=== PATIENT | male | born 1970 | race Caucasian/White ===

== ENCOUNTER 2020-10-14 11:53 | Outpatient (REF) | payer SELFPAY ==
[2020-10-14 12:31] LABS: Cholesterol 168 mg/dL
== END 2020-10-14 11:54 | disposition home or self-care (01) ==
LOC: HO.LNC 11:53
PROVIDERS: Visit Provider Pathology Anatomic Pathology & Clinical Pathology
DX: Z13.89 Encounter for screening for other disorder (principal)
CPT/HCPCS: 36415; 82465

== ENCOUNTER 2022-03-09 06:39 | Outpatient (REF) | payer MEDICARE, MEDICAID, SELFPAY ==
[2022-03-09 06:57] LABS: Hematocrit 42.6 % (42.0-52.0); Hemoglobin 13.9 g/dl (14.0-18.0); Mean Corpuscular HGB Conc 32.6 g/dl (31.0-36.0); Mean Corpuscular Volume 85.7 fL (80.0-98.0); Platelet Count 350 X10*3/uL (160-400); Red Blood Count 4.97 X10*6/uL (4.60-5.80); Red Cell Distribution Width 13.4 % (11.0-16.0); White Blood Count 8.7 X10*3/uL (4.8-10.8)
[2022-03-09 07:08] LABS: Alanine Aminotransferase 34 U/L (0-40); Albumin Level 4.2 g/dL (3.5-5.0); Alkaline Phosphatase 82 U/L (39-117); Anion Gap 13 (12-20); Aspartate Amino Transferase 24 U/L (5-37); Bilirubin Total 0.5 mg/dL (0.0-1.0); Blood Urea Nitrogen 24 mg/dL (9-16); Carbon Dioxide 26 mmol/L (22-29); Chloride 106 mmol/L (96-108); Estimated Glomerular Filt Rate > 60; Glucose Random 94 mg/dL (60-115); Potassium 4.6 mmol/L (3.3-5.1); Sodium 140 mmol/L (135-145); Total Protein 7.2 g/dL (6.5-8.0)
== END 2022-03-09 06:40 | disposition home or self-care (01) ==
LOC: HO.MMNH2L 06:39
PROVIDERS: Visit Provider Family Medicine
DX: M54.50 Low back pain, unspecified (principal); S06.9X0D Unspecified intracranial injury without loss of consciousness, subsequent encounter
CPT/HCPCS: 36415; 80053; 85027

== ENCOUNTER 2023-08-17 11:47 | Outpatient (REF) | payer MEDICARE, MEDICAID, SELFPAY ==
[2023-08-17 13:29] LABS: MANUAL DIFF FLAG NO
[2023-08-17 13:31] LABS: Basophils Percent Auto 0.5 % (0-2); Eosinophils Absolute Auto 0.1 X10*3/uL (0.0-0.4); Eosinophils Percent Auto 1.3 % (0-4); Hematocrit 46.2 % (42.0-52.0); Hemoglobin 15.2 g/dl (14.0-18.0); Imm Gran Abs Auto 0.03 X10*3/uL (0.00-0.03); Imm Gran Pct Auto 0.4 % (0.0-0.4); Lymphocytes Absolute Auto 1.1 X10*3/uL (1.2-4.9); Lymphocytes Percent Auto 14.2 % (20-40); Mean Corpuscular HGB Conc 32.9 g/dl (31.0-36.0); Mean Corpuscular Hemoglobin 26.8 pg (27.0-33.0); Mean Corpuscular Volume 81.3 fL (80.0-98.0); Mean Platelet Volume 9.6 fL (9.4-12.4); Monocytes Absolute Auto 0.9 X10*3/uL (0.1-1.2); Monocytes Percent Auto 12.3 % (2-11); Neutrophils Absolute Auto 5.4 x10*3/uL (2.0-8.3); Neutrophils Percent Auto 71.3 % (45-73); Platelet Count 471 X10*3/uL (160-400); Red Blood Count 5.68 X10*6/uL (4.60-5.80); Red Cell Distribution Width 14.6 % (11.0-16.0); White Blood Count 7.6 X10*3/uL (4.8-10.8)
[2023-08-17 13:44] LABS: Appearance Urine Clear; Color Urine Yellow; Glucose Urine UA Negative (Negative); Leukocyte Esterase Urine Negative (Negative); Nitrite Urine Negative (Negative); PH 5.5 (5.0-9.0); Urine Blood Negative (Negative); Urine Ketones 15 mg/dL (Negative); Urine Protein Negative (Neg-Trace)
[2023-08-17 13:48] LABS: Alanine Aminotransferase 91 U/L (0-40); Albumin Level 4.4 g/dL (3.5-5.0); Alkaline Phosphatase 114 U/L (39-117); Anion Gap 16 (12-20); Aspartate Amino Transferase 55 U/L (5-37); Bilirubin Direct 0.2 mg/dL (0.0-0.5); Bilirubin Total 0.6 mg/dL (0.0-1.0); Blood Urea Nitrogen 16 mg/dL (9-16); Carbon Dioxide 22 mmol/L (22-29); Chloride 101 mmol/L (96-108); Cholesterol 150 mg/dL (<200); Estimated Glomerular Filt Rate > 60; HDL Cholesterol 36 mg/dL (>40); LDL Cholesterol Calculated 88 mg/dL (<100); Potassium 3.9 mmol/L (3.3-5.1); Sodium 135 mmol/L (135-145); Triglycerides 134 mg/dL (<150)
[2023-08-17 14:05] LABS: Prostate Specific Antigen Scr 0.59 ng/mL (<0.05-4.0)
== END 2023-08-17 11:48 | disposition home or self-care (01) ==
LOC: HO.HMGCLDS 11:47
PROVIDERS: PCP Internal Medicine; Visit Provider Internal Medicine
DX: Z00.00 Encounter for general adult medical examination without abnormal findings (principal); Z12.5 Encounter for screening for malignant neoplasm of prostate; R53.83 Other fatigue; E78.5 Hyperlipidemia, unspecified
CPT/HCPCS: 36415; 80051; 80061; 80076; 81003; 82565; 84153; 84520; 85025

== ENCOUNTER 2024-08-03 10:03 | Outpatient (REF) | payer MEDICARE, MEDICAID, SELFPAY ==
[2024-08-03 10:17] LABS: MANUAL DIFF FLAG NO
[2024-08-03 10:43] LABS: Basophils Percent Auto 0.5 % (0-2); Eosinophils Absolute Auto 0.3 X10*3/uL (0.0-0.4); Eosinophils Percent Auto 4.2 % (0-4); Hematocrit 44.7 % (42.0-52.0); Hemoglobin 14.1 g/dl (14.0-18.0); Imm Gran Abs Auto 0.03 X10*3/uL (0.00-0.03); Imm Gran Pct Auto 0.4 % (0.0-0.4); Lymphocytes Absolute Auto 2.2 X10*3/uL (1.2-4.9); Lymphocytes Percent Auto 26.6 % (20-40); Mean Corpuscular HGB Conc 31.5 g/dl (31.0-36.0); Mean Corpuscular Hemoglobin 25.8 pg (27.0-33.0); Mean Corpuscular Volume 81.7 fL (80.0-98.0); Monocytes Absolute Auto 0.9 X10*3/uL (0.1-1.2); Monocytes Percent Auto 10.4 % (2-11); Neutrophils Absolute Auto 4.7 x10*3/uL (2.0-8.3); Neutrophils Percent Auto 57.9 % (45-73); Platelet Count 448 X10*3/uL (160-400); Red Blood Count 5.47 X10*6/uL (4.60-5.80); White Blood Count 8.2 X10*3/uL (4.8-10.8)
[2024-08-03 11:16] LABS: Alanine Aminotransferase 118 U/L (0-40); Albumin Level 4.3 g/dL (3.5-5.0); Alkaline Phosphatase 112 U/L (39-117); Anion Gap 10 (12-20); Aspartate Amino Transferase 42 U/L (5-37); Bilirubin Total 0.3 mg/dL (0.0-1.0); Blood Urea Nitrogen 21 mg/dL (9-16); Calcium 9.4 mg/dL (8.4-10.2); Carbon Dioxide 26 mmol/L (22-29); Chloride 106 mmol/L (96-108); Cholesterol 167 mg/dL (<200); Estimated Glomerular Filt Rate > 60; Glucose Fasting 102 mg/dL (60-99); HDL Cholesterol 34 mg/dL (>40); Iron 41 mcg/dL (45-160); LDL Cholesterol Calculated 96 mg/dL (<100); Percent Iron Saturation 11 % (15-50); Potassium 4.3 mmol/L (3.3-5.1); Sodium 138 mmol/L (135-145); Total Iron Binding Capacity 359 mcg/dL (228-428); Total Protein 7.7 g/dL (6.5-8.0); Triglycerides 188 mg/dL (<150); Unsaturated Iron Binding 318 ug/dL
[2024-08-03 11:30] LABS: Ferritin 26 ng/mL (20-250)
== END 2024-08-03 10:04 | disposition home or self-care (01) ==
LOC: HO.LAB 10:03
PROVIDERS: PCP Internal Medicine; Visit Provider Internal Medicine
DX: R53.83 Other fatigue (principal); D64.9 Anemia, unspecified; E78.5 Hyperlipidemia, unspecified
CPT/HCPCS: 36415; 80053; 80061; 82728; 83540; 85025

== ENCOUNTER 2025-06-04 09:33 | Outpatient (REF) | payer MEDICARE, MEDICAID, SELFPAY ==
--- OUTSIDE RECORDS SUMMARY | 2024-08-03 06:40 | XMS_ITS ---
Author Organization [facility] Address [address] [place] [phone] Care Team Providers Care Hurl Shaker Name Role Phone Collin PRYOR, Vinicio Primary Care Provider Unavailab Eugene Burrows Unavailable [phone] REASON FOR VISIT screening colon Encounters Encounter Location Date Provider Diagnosis [facility] [address] [place] [phone] 08/03/2024 Eugene Andrade Plan Of Treatment Next Appt Details Provider Name:Eugene Andrade , 07/16/2025 01:50:00 PM, [address] [place] [address], [id number], Progress Notes * DYLAN DELUCADOB:[birth year] (54 yo M)Acc No.[id number]:08/03/2024 Progress Notes Patient: DYLAN CHRISTOPHER Provider: Saul Andrade MD :1970 A ge:54 Y S ex:Male Date:08/03/2024 Address:[facility] [address] [place] Pcp:Vinicio Polanco MD Subjective: * Chief Complaints: [...] Andrade MD Date: 1 10/03/2023 Generated for aMddie escalante/Rickie/eTransmitting on: 0 06/04/2025 11:32 AM EDT
--- NOTE | ~2025-06-04 | US_ITS ---
EXAMINATION: US ABDOMEN COMPLETE WITH LIVER ELASTOGRAPHY HISTORY: ELEVATED LFT TECHNIQUE: Real-time grayscale ultrasound imaging of the abdomen was performed and images were reviewed. COMPARISON: There are no prior studies available for comparison. FINDINGS: Liver: The right lobe of the liver measures 15.0 cm in size. The left lobe of the liver measures 7.9 cm in size. The liver demonstrates increased echotexture, consistent with steatosis. There is a 7 x 8 x 11 mm cyst in the left lobe. No intrahepatic biliary ductal dilatation is identified. There is normal hepatopedal flow in the portal vein. Ultrasound elastography of the liver was performed with 10 separate measurements of the liver parenchyma with the patient in the supine position. Measurements were obtained approximately 2 cm below Ramandeep's capsule and perpendicular to the capsule. The median shear wave velocity is 1.67 m/s. The interquartile range/median (IQR/median) is 0.10. Gallbladder and biliary tree: The gallbladder is unremarkable, without evidence of calculi, wall thickening, or pericholecystic fluid. There is no sonographic Hernandez sign. The common bile duct is normal in caliber measuring 5 mm. Kidneys: The right kidney measures 10.8 cm in length. The left kidney measures 12.2 cm in length. The kidneys are unremarkable, without evidence of masses, hydronephrosis, or calculi. Pancreas: The pancreas is obscured by bowel gas. Spleen: The spleen is normal in size and contour, measuring 9.9 cm in length. Abdominal aorta and inferior vena cava: The visualized portions of the abdominal aorta and inferior vena cava are normal in caliber. There is no free fluid in the abdomen. US/US abdomen comp w elastography IMPRESSION: Hepatic steatosis. The pancreas is not visualized. The median shear wave velocity in the liver is 1.67 m/s, corresponding to a median liver stiffness of 8.41 kPa. The IQR/median value is 0.10. This is indicative of a quality data set. Findings are indicative of a low elastography value which rules out advanced chronic liver disease in asymptomatic patients. REFERENCE: Society of Radiologists in Ultrasound Liver Stiffness Thresholds (2020): LIVER STIFFNESS THRESHOLDS: *Shear wave velocity less than 1.3 m/s (Liver Stiffness equal or less than 5 kPa): High probability of being normal. *Shear wave velocity less than 1.7 m/s (Liver Stiffness less than 9 kPa): In the absence of other known clinical signs, rules out compensated advanced chronic liver disease. *Shear wave velocity between 1.7-2.1 m/s (Liver Stiffness 9-13 kPa): Suggestive of compensated advanced chronic liver disease but need further test for confirmation. *Shear wave velocity between 2.1-2.4 m/s (Liver Stiffness 13-17 kPa): Rules in compensated advanced chronic liver disease. *Shear wave velocity greater than 2.4 m/s (Liver Stiffness over 17 kPa): Suggestive of clinically significant portal hypertension. QUALITY OF DATA SET: *IQR/Median value equal or less than 0.15 implies a quality data set. *IQR/Median value over 0.15 implies a poor quality data set. SIGNIFICANT CHANGE FROM PRIOR EXAM: Significant change if liver stiffness measurement is 10% or greater from prior exam. OTHER CONSIDERATIONS: The stage of liver fibrosis may be overestimated in the setting of acute hepatitis, liver inflammation, elevated liver function tests, hepatic vascular congestion, obstructive cholestasis, non-fasting state, and infiltrative diseases such as amyloidosis and lymphoma. In some patients with NAFLD, the liver stiffness thresholds for compensated advanced chronic liver disease may be lower. In causes other than viral hepatitis and NAFLD, liver stiffness thresholds are not well established. Electronically signed by: Eugene Salamanca MD 06/04/2025 10:16 AM EDT
--- OUTSIDE RECORDS SUMMARY | 2025-06-04 11:32 | XMS_ITS | Encounter Summary ---
Author Organization [facility] Address [address] [place] [address] Phone Care Team Providers Care Store Clerk Name Role Phone Kamaljit Lo MD Primary Care Provider +1- [phone] Encounter Details Date Type Department Care Team (Late st Contact Info) Description 11/22/2017 Ancillary Orders [facility] External Provider Virtual Department [address] [place] [address] Kamaljit Lo MD [address] [place] [address] SOB (shortness of breath) on exertion Social [...] breath documented in this encounter Care Teams Store Clerk Relationship Specialty Start Date End Date Kamaljit Lo MD [address] [place], [place] [phone] PCP - General Internal Medicine 09/12/17 documented as of this encounter Additional Source Comments The information contained in this document represents components of the legal health record. It is not the complete legal health record.[facility]
--- OUTSIDE RECORDS SUMMARY | 2025-06-04 11:32 | XMS_ITS | Clinical Summary ---
Author Organization [employer] Address [address] 7[address] [place] [address] Care Team Providers Care Customer Operations Representative Name Role Phone Unavailable Primary Care Provider [...] Description 03/26/2025 2:30 PM EDT Office Visit [facility] ADULT DENTAL [address] [place] [address] Juliocesar Hairston 03/14/2025 10:00 AM EDT Office Visit [facility] ADULT DENTAL [address] [place] [address] Juliocesar Hairston from Last 3 Months Social [...] SURFACES (ANTERIOR) Routine 03/14/2025 10:00 AM EDT PROPHYLAXIS - ADULT Routine 12/27/2024 2 :00 PM EDT INTRAORAL - COMPLETE SERIES OF RADIOGRAPHIC IMAGES Routine 12/27/2024 2:00 PM EDT COMPREHENSIVE ORAL EVALUATION - NEW OR ESTABLISHED PATIENT Routine 12/27/2024 2:00 PM EDT from Last 3 Months or Most Recently Relevant to Health Maintenance Insurance [facility] STAND ADULT
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
--- OUTSIDE RECORDS SUMMARY | 2025-06-04 11:32 | XMS_ITS | Clinical Summary ---
Author Organization [facility] Address [address] [place] [address] Phone Care Team Providers Care Video Production Assistant Name Role Phone Kamaljit Lo MD Primary Care Provider +1- [phone] Allergies No known active allergies Medications No [...] (08/24/2024 10:19 AM EST) HDL 35 mg/dL [facility] Comment: Interpretation <40 mg/dL: Low HDL cholesterol (major risk factor for CHD) Greater than or equal to 60 mg/dL: High HDL cholesterol ( negative risk factor for CHD) HDL - cholesterol is affected by a number of factors, e.g. smoking, excerise, hormones, sex and age. CHOLESTEROL 146 0 - 240 mg/dL [facility] TRIGLYCERIDES 177(H) 30 - 160 mg/dL [facility] LDL 76 50 - 129 mg/dL [facility] Comment: LDL levels in terms of risk for coronary heart disease: <100 mg/dL: Optimal 100-129 mg/dL: Near or above optimal 130-159 mg/dL: Borderline high 160-189 mg/dL: High >190 mg/dL: Very High CARDIAC RISK RATIO 4.2 3.4 - 5.0 C [facility] 08/24/2024 10:1 9 AM EST 08/24/2024 11:08 AM EST Prem Mann SOFTWARE DEVELOPMENT TEST ENGINEER LAB BLOOD ORDERABL ES Final Result [facility] [address] [place], [place] [phone] from Last 3 Months or Most Recently Relevant to Health Maintenance Insurance MEDICARE PART A & B [facility] PART A & B [facility] PART A & [place] PART [place] & [facility]IC[facility] PART A & [place] [facility] PART [facility] & [facility] A & [facility] [place] [facility] [employer] Advance Directives For more information, please contact: [phone] (9AM - 5PM [facility], Wednesday-Wednesday) Documents on File Type Date Recorded Patient Animal Daycare Provider Expl anation Healthcare Proxy 03/08/2022 Signed Healthcare Agents on File Name Relationship Healthcare Agent [facility] p Communication Tamara Pisano Life Partner Alternate Healt hcare Agent (Proxy form on file) Trixie Marley Sister .Primary Health Care Agent (Proxy form on file) Care Teams Video Production Assistant Relationship Specialty Start Date End Date Kamaljit Lo MD [address] [place] [id number] PCP - General Internal Medicine 09/12/17 Additional Source Comments The information contained in this document represents components of the legal health record. It is not the complete legal health record.[facility]
== END 2025-06-04 09:34 | disposition home or self-care (01) ==
LOC: HO.US 09:33
PROVIDERS: PCP Internal Medicine; Visit Provider Internal Medicine
DX: R79.89 Other specified abnormal findings of blood chemistry (principal)
CPT/HCPCS: 76700; 76981

== ENCOUNTER → 2025-06-04 09:41 | Outpatient (BNV) | payer MEDICARE, MEDICAID, SELFPAY | PROVIDERS: PCP Internal Medicine; Visit Provider Radiology Diagnostic Radiology | DX: K76.0 Fatty (change of) liver, not elsewhere classified (principal) | CPT/HCPCS: 76700 ==

== ENCOUNTER 2025-07-16 11:11 | Day surgery (SDC) | payer MEDICARE, MEDICAID, SELFPAY ==
--- OUTSIDE RECORDS SUMMARY | 2024-08-03 06:40 | XMS_ITS ---
Author Organization [facility] Address [address] [place] [phone] Care Team Providers Care Sales Engineer Account Manager Name Role Phone Collin PRYOR, Vinicio Primary Care Provider Unavailab Eugene Burrows Unavailable [phone] REASON FOR VISIT screening colon Encounters Encounter Location Date Provider Diagnosis [facility] [address] [place] [phone] 08/03/2024 Eugene Andrade Plan Of Treatment Next Appt Details Provider Name:Eugene Andrade , 07/16/2025 01:50:00 PM, [address] [place] [address], [id number], Progress Notes * DYLAN DELUCADOB:[birth year] (54 yo M)Acc No.[id number]:08/03/2024 Progress Notes Patient: DYLAN CHRISTOPHER Provider: Saul Andrade MD :1970 A ge:54 Y S ex:Male Date:08/03/2024 Address:[facility] [address] [place] Pcp:Vinicio Polanco MD Subjective: * Chief Complaints: * 1 . Screening colon. * Medical History: Objective: * Vitals: Assessment: Plan: * Treatment: * * The named appointment provid er may or may not be the originator of this progress note, and it is not deemed complete until electronically signed by the appointment provider. Sign off status: Pending * Provider: Saul Andrade MD Date: 1 10/03/2023 Generated for Maddie escalante/Rickie/eTransmitting on: 0 05/24/2025 01:53 PM EDT
--- OUTSIDE RECORDS SUMMARY | 2025-05-24 13:53 | XMS_ITS | Encounter Summary ---
Author Organization [facility] Address [address] [place] [address] Phone Care Team Providers Care Spinneret Person Name Role Phone Kamaljit Lo MD Primary Care Provider [phone] Encounter Details Date Type Department Care Team (Late st Contact Info) Description 11/22/2017 Ancillary Orders [facility] External Provider Virtual Department [address] [place] [address] Kamaljit Lo MD [address] [place] [address] SOB (shortness of breath) on exertion Social History Tobacco Use Types Packs/Day Years Used Date Smoking Tobacco: Never Smokeless Tobacco: Never Alcohol Use Standard Drinks/Week Comments No 0 (1 standard drink = 0.6 oz pur e alcohol) Sex and Gender Information Value Date Recorded Sex Assigned at Not on file Legal Sex Male 9:37 PM EDT Gender Identity Not on file Sexual Orientation Not on file documented as of this encounter Plan of Treatment Scheduled Orders Name Type Priority Associated Diagnoses Orde r Schedule XR Chest Imaging Routine SOB (shortness of breath) on exertion Expected: 11/22/2017, Expires: 11/22/2018 documented as of this encounter Visit Diagnoses Diagnosis SOB (shortness of breath) on exertion Shortness of breath documented in this encounter Care Teams Spinneret Person Relationship Specialty Start Date End Date Kamaljit Lo MD [address], [place] [id number] PCP - General Internal Medicine 09/12/17 documented as of this encounter Additional Source Comments The information contained in this document represents components of the legal health record. It is not the complete legal health record.[facility]
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
--- OUTSIDE RECORDS SUMMARY | 2025-05-24 13:53 | XMS_ITS ---
Author Organization [place] [facility] Care Team Providers Care Broadcasting Equipment Mechanic Name Role Phone JOE MICHAUD Unavailable Unavailable Care Team Name Role Address Phone Organization Dates JOE JASWANT PCP [address], [place], [address], [place] (Office): : [facility] 05/19/2017 - 05/25/2017 Goals Section Goals Description Status Target Date Advance Directive choices will be honored sari allison next review Active 08/18/2017 Advance Directive choices wi ll be reviewed with change of status and at Quarterly/Annual care plan meetings Active 08/18/2017 Hilario will have a post dis charge plan that meets the resident's need at discharge including supports services as ordered by MD Active 08/18/2017 Hilario will have discharge teaching initiated over the next 90 days to facilitate discharge to home/services. Active Jorge Cuevas will discuss returni ng to the community with SW/staff over the next 90 days Active 08/18/2017 Mental Status Section Date Assessment Total Score Description 05/25/2017 BIMS 15 cognitively int act CAM 0 No delirium ind icated PHQ-9 01 minimal depress ion Reason for Referral No Reasons for Referral Entered Social History Social History Observation Description Start Date End Date Code Code System Current Smoking Status Tobacco smoking consumption unknown 794629656 SNOMED CT Sex Assigned At Male 1970 [address]-3 [facility] Gender Identity
--- OUTSIDE RECORDS SUMMARY | 2025-05-24 13:53 | XMS_ITS | Clinical Summary ---
Author Organization [employer] Address [address] 7[address] [place] [address] Care Team Providers Care Actuarial Internship Name Role Phone Unavailable Primary Care Provider Unavailabl e Allergies No known active allergies Medications omeprazole (PriLOSEC) [address] capsule 11/20/2024 Activ e atorvastatin (Lipitor) 10 MG tablet Take 10 mg by mouth Once per day. Active acyclovir (Zovirax) 200 MG capsule TAKE ONE CAPSULE BY MOUTH EVERY 4 HOURS UP TO 5 TIMES A DAY 03/22/2024 Active Acetaminophen 500 MG capsule Take 2 capsules by mouth every 8 (eight) hours. 06/05/2022 Active acetaminophen (Tylenol) 500 MG tablet Take 1 tablet (500 mg) by mouth every 6 (six) hours if needed for mild pain for up to 20 doses. 20 tablet 11/22/2024 Active ibuprofen 600 MG tablet Take 1 tablet (600 mg) by mouth every 6 (six) hours if needed for mild pain or moderate pain for up to 20 doses. 20 tablet 11/22/2024 Active acetaminophen (Tylenol) 500 MG tablet Take 1 tablet (500 mg) by mouth every 6 (six) hours if needed for mild pain for up to 20 doses. 20 tablet 12/20/2024 Active ibuprofen 600 MG tablet Take 1 tablet (600 mg) by mouth every 6 (six) hours if needed for mild pain for up to 20 doses. 20 tablet 02/01/2025 Active Active Problems No known active problems Encounters Date Type Department Care Team Description 03/26/2025 2:30 PM EDT Office Visit [facility] ADULT DENTAL [address] [place] [address] Juliocesar Hairston 03/14/2025 10:00 AM EDT Office Visit [facility] ADULT DENTAL [address] [place] [address] Juliocesar Hairston 02/21/2025 10:00 AM EDT Office Visit [facility] ADULT [facility] [address] [place] [address] Juliocesar Hairston from Last 3 Months Social History Tobacco Use Types Packs/Day Years Used Date Smoking Tobacco: Never Passive Smoke Exposure: Never Smokeless Tobacco: Never Tobacco Cessation:Counseling Given: Not Answered Sex and Gender Information Value Date Recorded Sex Assigned at Male 07/20/2022 10:40 AM EDT Legal Sex Male 10:40 AM EDT Gender Identity Choose not to disclose 10:40 AM EDT Sexual Orientation Choose not to disclose 2021 10:40 AM EDT Last Filed Vital Signs Vital Sign Reading Time Taken Comments Blood Pressure 128/88 03/14/2025 10:23 AM EDT Pulse 76 12/27/2024 1:22 PM EDT Temperature - - Respiratory Rate - - Oxygen Saturation - - Inhaled Oxygen Concentration - - Weight - - Height - - Body Mass Index - - Plan of Treatment Health Maintenance Due Date Last Done Comments CT Colonography 1968 Colonoscopy 1968 Colorectal Cancer Screening 1968 Depression Screening 1968 FIT DNA/Cologuard 1968 FIT 1968 FOBT 1968 HIV Screening 1968 Lipid Panel 1968 SDOH Screening 1968 Sigmoidoscopy 1968 Disability Screening 1968 Alcohol/Substance Use Screening 1980 Hepatitis C Screening 1986 DTaP/Tdap/Td Vaccines (1 - Tdap) 1987 Hepatitis B Vaccines (1 of 3 - 19+ 3-dose series) 1987 Pneumococcal Vaccine: 50+ Years (1 of 1 - PCV) 2018 Influenza Vaccine (#1) 2025 , 11/09/2023, 07/20/2022, Additional history exists Dental Oral Exam 06/29/2025 12/27/2024 Dental Prophylaxis 06/29/2025 12/27/2024 Dental X-Ray: Bitewings 12/28/2025 12/27/2024, 11/22 Tobacco Screening 03/26/2026 03/26/2025 Dental X-Ray: Full Mouth 12/29/2027 12/27/2024 RSV Patients and Patients Aged 60 years or older (1 - 1-dose 75+ series) 2043 Zoster Vaccines Completed 11/21/2020, 09/16/2020 COVID-19 Vaccine Completed 02/09/2025, , 02/02/2024, Additional history exists HIB Vaccines Aged Out No longer eligi ble based on patient's age to complete this topic HPV Vaccines Aged Out No longer eligi ble based on patient's age to complete this topic Hepatitis A Vaccines Aged Out No long er eligible based on patient's age to complete this topic IPV Vaccines Aged Out No longer eligi ble based on patient's age to complete this topic Meningococcal B Vaccine Aged Out No l onger eligible based on patient's age to complete this topic Meningococcal Vaccine Aged Out No timur audra eligible based on patient's age to complete this topic RSV under 20 months Aged Out No longe r eligible based on patient's age to complete this topic Rotavirus Vaccines Aged Out No longer eligible based on patient's age to complete this topic Procedures Procedure Name Priority Date/Time Associated Diagnosis Comments CASE PRESENTATION, DETAILED AND EXTENSIVE TREATMENT PLANNING Routine 03/26/2025 2:30 PM EDT 22 MIDF RESIN-BASED COMPOSITE - 4 OR MORE SURFACES (ANTERIOR) Routine 03/26/2025 2:30 PM EDT 21 MODB RESIN-BASED COMPOSITE - 4+ SURF, POSTERIOR Routine 03/26/2025 2:30 PM EDT CASE PRESENTATION, DETAILED AND EXTENSIVE TREATMENT PLANNING Routine 03/14/2025 10:00 AM EDT 11 M RESIN-BASED COMPOSITE - 1 SURF, ANTERIOR Routine 03/14/2025 10:00 AM EDT 10 MDFL RESIN-BASED COMPOSITE - 4 OR MORE SURFACES (ANTERIOR) Routine 03/14/2025 10:00 AM EDT CASE PRESENTATION, DETAILED AND EXTENSIVE TREATMENT PLANNING Routine 02/21/2025 10:00 AM EDT 5 BB(V)O RESIN-BASED COMPOSITE - 2 SURF, POSTERIOR Routine 02/21/2025 10:00 AM EDT 4 B(V) RESIN-BASED COMPOSITE - 1 SURF, POSTERIOR Routine 02/21/2025 10:00 AM EDT PROPHYLAXIS - ADULT Routine 12/27/2024 2 :00 PM EDT INTRAORAL - COMPLETE SERIES OF RADIOGRAPHIC IMAGES Routine 12/27/2024 2:00 PM EDT COMPREHENSIVE ORAL EVALUATION - NEW OR ESTABLISHED PATIENT Routine 12/27/2024 2:00 PM EDT from Last 3 Months or Most Recently Relevant to Health Maintenance Insurance [facility] MEDICAID STAND ADULT
--- OUTSIDE RECORDS SUMMARY | 2025-05-24 13:53 | XMS_ITS | Clinical Summary ---
Author Organization [facility] Address [address] [place] [address] Phone Care Team Providers Care Hydraulic Engineer Name Role Phone Kamaljit Lo MD Primary Care Provider +1- [phone] Allergies No known active allergies Medications No known medications Immunizations Immunization Administration Dates Next Due COVID-19 (Pre-07/12) Pfizer Vaccine, mRNA, PF 09/16/2021,01/11/2021,12/18/2020 Social History Tobacco Use Types Packs/Day Years Used Date Smoking Tobacco: Never Smokeless Tobacco: Never Alcohol Use Standard Drinks/Week Comments Yes 0 (1 standard drink = 0.6 oz pure alcohol) quit for 20 years, started again- now drinks every other day Education Answer Date Recorded Are you interested in more education? Not on pedro e 01/15/2023 Are you concerned about learning? Not on file 01/15/2023 No 01/15/2023 No 01/15/2023 Digital Access Answer Date Recorded No 02/13/2023 No 02/13/2023 No 02/13/2023 Reliable internet access at home? Not on file 02/13/2023 Device with a working camera? Not on file Sex and Gender Information Value Date Recorded Sex Assigned at Not on file Legal Sex Male 9:37 PM EDT Gender Identity Not on file Sexual Orientation Not on file Last Filed Vital Signs Vital Sign Reading Time Taken Comments Blood Pressure 132/80 02/02/2024 6:32 PM EDT Pulse 116 02/02/2024 6:32 PM EDT Temperature 37.1 C (98.8 F) 02/02/2024 6:32 PM EDT Respiratory Rate 20 02/02/2024 6:32 PM EDT Oxygen Saturation 93% 02/02/2024 6:32 PM EDT Inhaled Oxygen Concentration - - Weight 111.1 kg (245 lb) 02/02/2024 4:11 PM EDT Height 172.7 cm (5' 8 ) 02/02/2024 4:11 PM EDT Body Mass Index 37.25 02/02/2024 4:11 PM EDT Plan of Treatment Health Maintenance Due Date Last Done Comments Adult Td,Tdap Booster 1968 DEPRESSION SCREENING 1980 HEPATITIS C SCREENING 1986 HIV ONE-TIME SCREENING (18-6 5 YEARS) 1986 COLOGUARD 2013 COLONOSCOPY 2013 COLORECTAL CANCER SCREENING 2013 FIT TEST 2013 FOBT 2013 SIGMOIDOSCOPY 2013 VIRTUAL COLONOSCOPY 2013 PNEUMOCOCCAL VACCINES (50+ years) (1 of 1 - PCV) 2018 INFLUENZA VACCINE (#1) 2025 07/23/2020 COVID-19 VACCINE (4 - 2024-2 6 season) 2025 09/16/2021, 01/11/2021, 12/18/2020 SCREENING FOR DIABETES 08/24/2027 08/24/2024 LIPID PANEL 08/24/2029 08/24/2024 ZOSTER VACCINES Completed 11/21/2020, 09/16/2020 SMOKING STATUS SCREENING (On ce After 26 Yrs) Completed 03/07/2022 HEPATITIS A VACCINES Aged Out No long er eligible based on patient's age to complete this topic HIB VACCINES Aged Out No longer eligi ble based on patient's age to complete this topic MENINGOCOCCAL VACCINES (ACWY) Aged Out No longer eligible based on patient's age to complete this topic MENINGOCOCCAL VACCINES (B) Aged Out N o longer eligible based on patient's age to complete this topic Medical Devices Not on file Procedures Procedure Name Priority Date/Time Associated Diagnosis Comments LIPID PANEL Routine 08/24/2024 10:19 AM EST Health examination of prisoner from Last 3 Months or Most Recently Relevant to Health Maintenance Results * (ABNORMAL) Lipid panel (08/24/2024 10:19 AM EST) HDL 35 mg/dL [facility] Comment: Interpretation <40 mg/dL: Low HDL cholesterol (major risk factor for CHD) Greater than or equal to 60 mg/dL: High HDL cholesterol ( negative risk factor for CHD) HDL - cholesterol is affected by a number of factors, e.g. smoking, excerise, hormones, sex and age. CHOLESTEROL 146 0 - 240 mg/dL [facility] TRIGLYCERIDES 177(H) 30 - 160 mg/dL [facility] LDL 76 50 - 129 mg/dL [facility] Comment: LDL levels in terms of risk for coronary heart disease: <100 mg/dL: Optimal 100-129 mg/dL: Near or above optimal 130-159 mg/dL: Borderline high 160-189 mg/dL: High >190 mg/dL: Very High CARDIAC RISK RATIO 4.2 3.4 - 5.0 C [facility] 08/24/2024 10:1 9 AM EST 08/24/2024 11:08 AM EST Prem Mann TRACTOR EXPERT LAB BLOOD ORDERABL ES Final Result [facility] [address] [place], [place] [id number] from Last 3 Months or Most Recently Relevant to Health Maintenance Insurance MEDICARE PART A & B [facility] & [place] [facility] PART [facility] & [place] [facility] PART [facility] & [facility] [place] [facility] [employer] Advance Directives For more information, please contact: [phone] (9AM - 5PM [facility], Wednesday-Wednesday) Documents on File Type Date Recorded Patient Pharmacy Operations Specialist Expl anation Healthcare Proxy 03/08/2022 Signed Healthcare Agents on File Name Relationship [facility] Tamara Pisano Life Partner Alternate Healt hcare Agent (Proxy form on file) Trixie Marley Sister .Primary Health Care Agent (Proxy form on file) Care Teams Hydraulic Engineer Relationship Specialty Start Date End Date Kamaljit Lo MD [address] [place] [id number] PCP - General Internal Medicine 09/12/17 Additional Source Comments The information contained in this document represents components of the legal health record. It is not the complete legal health record.[facility]
[2025-07-11 14:23] VITALS: BMI 36.5
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
[2025-07-16 11:16] VITALS: BP 148/96; PULSE 86; RESP 18; TEMP 36.4; O2SAT 95; BMI 36.7
[2025-07-16] MEDS: Lactated Ringers 1,000 ML 100 ML IVCONT (11:47)
[2025-07-16 13:13] VITALS: BP 93/66; PULSE 74; RESP 16; TEMP 37.1; O2SAT 93
[2025-07-16 13:15] VITALS: BP 102/68; PULSE 75; RESP 16; O2SAT 93
[2025-07-16 13:30] VITALS: BP 111/82; PULSE 75; RESP 16; TEMP 36.6; O2SAT 94
--- NOTE | 2025-07-16 13:47 | OP_ITS ---
DATE OF SERVICE: 07/16/2025 SURGEON: Eugene Andrade MD INDICATIONS: The patient presents for evaluation of chronic gastroesophageal reflux, personal history of colon polyps, colorectal cancer screening. Full consent has been obtained from him for this, including risks of bleeding and perforation. PREOPERATIVE DIAGNOSIS: POSTOPERATIVE DIAGNOSIS: PROCEDURE PERFORMED: ESTIMATED BLOOD LOSS: COMPLICATIONS: ANESTHESIA: Medication used, monitored anesthesia care. ASSISTANTS: SPECIMENS: PREOPERATIVE DIAGNOSES: Gastroesophageal reflux, personal history of colon polyps, and colorectal cancer screening. POSTOPERATIVE DIAGNOSES: Gastroesophageal reflux, personal history of colon polyps, and colorectal cancer screening, small hiatal hernia, gastritis, colon polyps, diverticulosis, and internal hemorrhoids. PROCEDURES PERFORMED: Esophagogastroduodenoscopy with biopsies, and colonoscopy to the cecum and terminal ileum with biopsy and removal of polyps. DESCRIPTION OF PROCEDURE: The patient was placed in the left lateral decubitus position. The Olympus video gastroscope was passed in the posterior oropharynx and upper esophagus under direct vision. The scope was passed slowly into the distal esophagus. The gastroesophageal junction appeared at 39 cm. There was some evidence of minimal irregularity and some edema, as well as erythema, but no evidence of esophagitis nor Sherman esophagus. The scope entered the stomach. There was a small hiatal hernia. The scope was advanced to the pylorus, and the duodenum was cannulated to the descending portion. The duodenum including the bulb appeared normal without mass or ulceration. The scope was withdrawn back in the stomach. The gastric antrum had changes consistent with gastritis with some areas of edema, erythema, and friability. There were no erosions or ulceration. Biopsies were obtained. There was good peristalsis. The scope was retroflexed visualizing the proximal stomach carefully, which appeared normal, without any sign of mass or ulceration. The scope was straightened and withdrawn back to the esophagus. Biopsies were obtained at the EG junction at 39 cm. Proximal to that, the esophageal mucosa appeared normal. The scope was withdrawn from the patient. He was turned around for the colonoscopy. The digital rectal exam revealed no abnormalities. The Olympus video pediatric colonoscope was entered into the rectum and advanced easily to the cecum. Once in the cecum, I did identify cecal pouch with appendiceal orifice and a normal-appearing ileocecal valve. The terminal ileum was cannulated and appeared normal. The scope was withdrawn back in the colon. The entire cecum was well visualized and appeared normal other than a 3 mm polyp, which was biopsied and removed with a cold biopsy forceps. The scope was then slowly withdrawn assessing all mucosal surfaces carefully. Preparation was excellent. At 30 cm was a flat, approximately 3 or 4 mm polyp, which was biopsied and removed with a cold biopsy forceps. I did not visualize any other polyps, colitis, nor angiodysplasia. There was a mild amount of sigmoid diverticulosis. In the rectum, scope was retroflexed visualizing internal hemorrhoids, but no other pathology. The rectal mucosa appeared normal. Scope was straightened and withdrawn from the patient. He tolerated both procedures well and was returned to the recovery area in stable condition. IMPRESSION: 1. Small hiatal hernia, gastroesophageal reflux. 2. Gastritis. 3. Small colon polyps. 4. Diverticulosis. 5. Internal hemorrhoids. PLAN: Results of the pathology will be checked. He has been advised to continue his omeprazole for continued symptomatic relief of reflux. I would recommend a repeat colonoscopy in 5 years for further screening. He will otherwise see me as needed. Of note, he does have a history of fatty liver and an abdominal ultrasound was otherwise negative besides that. He also have had some followup laboratories with me, but has not yet done those. He has been reminded to do those. MD LINETTE Lopez/CLAY / [phone]
--- NOTE | 2025-07-16 17:04 | P.BOP_ITS ---
Brief Operative Note Date of Service: 07/16/25 Pre-op diagnosis: GERD, Screening Post-op diagnosis: other (Hiatal hernia, GERD, Gastritis, Colon polyps) Procedure: EGD with biopsies, Colonoscopy to the cecum with biopsies and removal of polyps Surgeon: Eugene Andrade MD Anesthesia: MAC Was an Technical Sales Associate used for this Procedure?: No Estimated blood loss (mL): 2.0 Pathology: other (A. Gastric antrum B. EG Junction at 39cm C. Cecal polyp D. Polyp at 30cm) Condition: stable Disposition: PACU
== END 2025-07-16 14:30 | disposition home or self-care (01) ==
PROVIDERS: PCP Internal Medicine; Visit Provider Internal Medicine
PROC: (CPT 45380; principal; 2025-07-16 12:30)
DX: Z12.11 Encounter for screening for malignant neoplasm of colon (principal); K21.9 Gastro-esophageal reflux disease without esophagitis; Z86.0101 Personal history of adenomatous and serrated colon polyps; K44.9 Diaphragmatic hernia without obstruction or gangrene; K29.70 Gastritis, unspecified, without bleeding; K64.8 Other hemorrhoids; K63.5 Polyp of colon; K57.30 Diverticulosis of large intestine without perforation or abscess without bleeding
CPT/HCPCS: 45380; 43239; 88305; 88313; 88342; J2003; J2371; J2704; J3010